=== PATIENT | female | born 1995 | race Caucasian/White ===

== ENCOUNTER 2018-11-15 12:36 | Emergency (ER) | payer OTHER, MEDICAID, SELFPAY ==
[2018-11-15 12:40] VITALS: BP 122/79; PULSE 123; RESP 20; TEMP 37.1; O2SAT 99
--- NOTE | 2018-11-15 13:17 | ED_ITS ---
HPI - Female Genitourinary <ANTHONY Galan - Last Filed: 11/15/18 17:55> General Chief complaint: Urogenital-Female Stated complaint: 'yeast infection' Time Seen by Provider: 11/15/18 12:58 Source: patient Mode of arrival: ambulatory Limitations: no limitations History of Present Illness HPI Narrative: The patient is a 23-year-old female with history of herpes who presents with the chief complaint vaginal discharge going on for about 3 weeks. She states she was seen at an outside facility 2 weeks ago, and given Diflucan based on her symptoms, however exam was not done. She complains of a yellowish greenish vaginal discharge, vaginal itching and odor. She denies any dysuria urgency or frequency. She denies any nausea vomiting or diarrhea. She denies any abnormal vaginal bleeding. She denies possibility of . She believes she may be at risk of sexually transmitted infections. she has not taken anything else other than was single dose of Diflucan. She has not followed up with primary care provider despite symptoms ongoing for 3-4 weeks. She denies any rashes. she thinks she might have trich or BV. Related Data Home Medications Medication Instructions Recorded Confirmed albuterol sulfate [ProAir HFA] 1 puff INHALATION PRN PRN 11/15/18 11/15/18 methadone 120 mg PO DAILY 11/15/18 11/15/18 naloxone [Narcan] 1 spray INTRANASAL DIRECTED PRN 11/15/18 11/15/18 Allergies Allergy/AdvReac Type Severity Reaction Status Date / Time diphenhydramine Allergy Unknown Unverified 11/15/17 12:06 [From BENADRYL] hydrocodone [From VICODIN] Allergy Unknown Unverified 11/15/17 12:06 zinc [ZINC] Allergy Unknown Unverified 11/15/17 12:06 Review of Systems <ANTHONY Galan - Last Filed: 11/15/18 17:55> Review of Systems GENERAL: Denies chills, fatigue, malaise, fever, sweats. HEENT: Denies sinus pain, ear pain, sore throat, difficulty swallowing, dizziness. RESPIRATORY: Denies dyspnea, cough, wheezing, hemoptysis, sputum. CARDIOVASCULAR: Denies chest pain, palpitations, orthopnea, edema, GASTROINTESTINAL: Denies nausea, vomiting, abdominal pain, diarrhea, constipation, melena. : See HPI MUSCULOSKELETAL: denies weakness, joint pain, or bony pain SKIN: Denies rash, skin lesions, or other NEUROLOGIC: Denies weakness, headache, numbness, change in speech, confusion, seizures, incoordination. PSYCHIATRIC: No concerning psychosocial issues. 12 point review of systems is negative except for those stated above PFSH <ANTHONY Galan - Last Filed: 11/15/18 17:55> Social History Smoking Status: Current every day smoker Social History Smoking Status: Current every day smoker Exam <ANTHONY Galan - Last Filed: 11/15/18 17:55> Narrative Exam Narrative: GENERAL: This is a well-nourished, well-developed patient, no acute distress HEAD: Atraumatic. Normocephalic. No temporal or scalp tenderness. EYES: Pupils equal round and reactive. Extraocular motions intact. No scleral icterus. No injection or drainage. ENT: Nose without bleeding, purulent drainage or septal hematoma. Throat without erythema, tonsillar hypertrophy or exudate. Uvula midline. Airway patent. NECK: Trachea midline. No JVD or lymphadenopathy. Supple, nontender, no meningeal signs. CARDIOVASCULAR: Regular rate and rhythm RESPIRATORY: No cough. No increased respiratory effort. GASTROINTESTINAL: Abdomen soft, non-tender, nondistended. No hepato- splenomegaly, or palpable masses. No guarding. EXTREMITIES: No clubbing, cyanosis, or edema. No joint tenderness, effusion, or edema noted. BACK: Nontender without deformity or crepitance. No flank tenderness. NEURO: AOx3. SKIN: No rash or erythema. : Pelvic exam performed with Tammi OWEN as environmental solutions engineer. No external rashes or erythema. White tissue yellow milky discharge noted. no strawberry cervix. No cervical motion tenderness on exam. Initial Vital Signs Initial Vital Signs: Vital Signs Temperature 98.7 F 11/15/18 12:40 Pulse Rate 123 H 11/15/18 12:40 Respiratory Rate 20 11/15/18 12:40 Blood Pressure 122/79 11/15/18 12:40 Pulse Oximetry 99 11/15/18 12:40 <Sruthi Javier DO - Last Filed: 11/19/18 07:11> Initial Vital Signs Initial Vital Signs: Vital Signs Temperature 98.7 F 11/15/18 12:40 Pulse Rate 123 H 11/15/18 12:40 Respiratory Rate 20 11/15/18 12:40 Blood Pressure 122/79 11/15/18 12:40 Pulse Oximetry 99 11/15/18 12:40 Course <ANTHONY Galan - Last Filed: 11/15/18 17:55> Orders Ordered: Discontinued Medications Metronidazole (Metronidazole) 2,000 mg PO NOW ONE Stop: 11/15/18 15:50 Last Admin: 11/15/18 15:54 Dose: 2,000 mg Vital Signs - 8 hr 11/15/18 12:40 11/15/18 15:13 Temperature 98.7 F Pulse Rate 123 H 107 H Respiratory Rate 20 18 Blood Pressure 122/79 Blood Pressure [Left Arm] 114/60 Pulse Oximetry 99 100 <DO oJse Crawford Last Filed: 11/19/18 07:11> Orders Ordered: Discontinued Medications Metronidazole (Metronidazole) 2,000 mg PO NOW ONE Stop: 11/15/18 15:50 Last Admin: 11/15/18 15:54 Dose: 2,000 mg Vital Signs - 8 hr 11/15/18 12:40 11/15/18 15:13 Temperature 98.7 F Pulse Rate 123 H 107 H Respiratory Rate 20 18 Blood Pressure 122/79 Blood Pressure [Left Arm] 114/60 Pulse Oximetry 99 100 MDM - Female Genitourinary <ANTHONY Galan - Last Filed: 11/15/18 17:55> Lab Data Lab Results 11/15/18 11/15/18 Range/Units 14:00 14:00 Urine Color Yellow Urine Appearance Clear Urine pH 5.0 (4.5-8.0) Ur Specific [place] >=1.030 H (1.000-1.035) Urine Protein Negative (Negative) Urine Glucose (UA) Negative (Negative) g/dL Urine Ketones Negative (NEGATIVE) Urine Occult Blood Trace-intact (Negative) Urine Nitrate Negative (Negative) Urine Bilirubin Negative (NEGATIVE) Urine Urobilinogen 0.2 (0.2) E.U./dL Ur Leukocyte Esterase 1+ H (NEGATIVE) Urine RBC 1-5/hpf (0-5/HPF) Urine WBC 5-10/hpf H (0-5/HPF) Ur Squamous Epith Cells 5-10 /hpf H (0-5/HPF) Urine Bacteria None seen (None) Ur Culture Indicated? Cult not indicated Ur Chlamydia DNA (PCR) Not detected N gonorrhoeae DNA (PCR) Not detected Point of Care Testing Test Results Negative MDM Narrative Medical decision making narrative: The patient is a 23-year-old female who presents with a chief complaint of vaginal discharge. she was treated with Diflucan. Thus we did do a pelvic exam. She had no cervical motion tenderness, excluding the PID diagnosis. She had testing negative for Chlamydia and gonorrhea. She had a negative RAMANA, no yeast or clue cells on culture. She was noted to have Trichomonas. Thus I treated her with 2 g of Flagyl as per up-to- date recommendations. I encouraged her to follow up with primary care provider as soon as possible. Discussed return precautions to the emergency department. Patient stated understanding and had no questions or concerns upon discharge. <Sruthi Javier, DO - Last Filed: 11/19/18 07:11> Lab Data Lab Results 11/15/18 11/15/18 Range/Units 14:00 14:00 Urine Color Yellow Urine Appearance Clear Urine pH 5.0 (4.5-8.0) Ur Specific [place] >=1.030 H (1.000-1.035) Urine Protein Negative (Negative) Urine Glucose (UA) Negative (Negative) g/dL Urine Ketones Negative (NEGATIVE) Urine Occult Blood Trace-intact (Negative) Urine Nitrate Negative (Negative) Urine Bilirubin Negative (NEGATIVE) Urine Urobilinogen 0.2 (0.2) E.U./dL Ur Leukocyte Esterase 1+ H (NEGATIVE) Urine RBC 1-5/hpf (0-5/HPF) Urine WBC 5-10/hpf H (0-5/HPF) Ur Squamous Epith Cells 5-10 /hpf H (0-5/HPF) Urine Bacteria None seen (None) Ur Culture Indicated? Cult not indicated Ur Chlamydia DNA (PCR) Not detected N gonorrhoeae DNA (PCR) Not detected Point of Care Testing Test Results Negative Discharge Plan Departure Patient Disposition: Home Clinical Impression: Trichomoniasis Discharge Date/Time: 11/15/18 16:04 Interventions: ED Discharge Assessment Last Done: 11/15/18 16:04 Instructions: DI for Trichomoniasis Activity Restrictions/Additional Instructions: We are treating you for Trichomoniasis. The single dose of Flagyl should take care of it. We are sending off a bacterial culture to check if there is any other infection. If this comes back positive he will receive a call in a few days. Please follow up with primary care provider. Please come back to emergency department for any acute concerns. Prescriptions: No Action albuterol sulfate [ProAir HFA] 90 mcg/actuation HFA aerosol inhaler 1 puff Inhalation PRN PRN (Reason: Shortness Of Breath) RF: 0 Narcan 4 mg/actuation spray,non-aerosol 1 spray Intranasal DIRECTED PRN (Reason: as directed) RF: 0 methadone 10 mg Tablet 120 mg PO DAILY RF: 0 Referrals: Colleen Rivera MD [Primary Care Provider] - <Sruthi Javier DO - Last Filed: 11/19/18 07:11> Cosign ED Attending Cosasifature Attestation: I was immediately available in the department for consultation. This documentation has been reviewed and I agree with assessment and plan. Supervised by Sruthi Javier DO
--- NOTE | 2018-11-15 13:44 | PC.NURSE ---
pt reports, having vaginal dc for one month, yellow green and with odor, itching. denies fever and nausea.
[2018-11-15 14:03] LABS: Appearance Urine UA CLEAR; Bacteria Urine None Seen; Bilirubin Urine UA NEGATIVE (NEGATIVE); Color Urine UA YELLOW; Glucose Urine UA NEGATIVE (Negative); Ketones Urine UA NEGATIVE (NEGATIVE); Leukocyte Esterase Urine UA 1+ (NEGATIVE); Nitrite Urine UA NEGATIVE (Negative); Occult Blood Urine UA TRACE-INTACT (Negative); Protein Urine UA NEGATIVE (Negative); Specific Gravity Urine UA >=1.030 (1.000-1.035); Urobilinogen Urine UA 0.2 E.U./dL (0.2)
[2018-11-15 14:11] LABS: Culture Indicated Urine Cult Not Indicated; RBC Urine 1-5/HPF (0-5/HPF); Squamous Epithelial Cell Urine 5-10 /HPF (0-5/HPF); WBC Urine 5-10/HPF (0-5/HPF)
[2018-11-15 15:13] VITALS: BP 114/60; PULSE 107; RESP 18; O2SAT 100
[2018-11-15 15:34] LABS: Urine N gonorrhoeae NOT DETECTED
[2018-11-15 15:38] LABS: Urine Chlamydia NOT DETECTED
[2018-11-15] MEDS: metroNIDAZOLE 500 MG TABLET 2000 MG PO (15:54)
== END 2018-11-15 16:04 | disposition home or self-care (01) ==
PROVIDERS: Emergency Provider Nurse Practitioner Family; Family Provider Specialist; PCP Specialist
DX: A59.9 Trichomoniasis, unspecified (principal)
CPT/HCPCS: 81001; 81025; 87070; 87077; 87147; 87205; 87210; 87220; 87491; 87591; 99283

== ENCOUNTER 2018-12-26 08:41 | Emergency (ER) | payer OTHER, MEDICAID, SELFPAY ==
[2018-12-26 08:59] VITALS: BP 125/83; PULSE 115; RESP 18; TEMP 37.2; O2SAT 100
--- NOTE | 2018-12-26 09:14 | ED.FEMALEGU ---
HPI - Female Genitourinary General Chief complaint: Urogenital-Female Stated complaint: DISCOMFORT/DISCHARGE/BURNING IN VAGINAL AREA Time Seen by Provider: 12/26/18 09:14 Source: patient Mode of arrival: ambulatory Limitations: no limitations History of Present Illness HPI Narrative: This is a 23-year-old female comes to the emergency department with concern for vaginal infection/Trichomonas. Patient states she has had once before. She states she is having similar symptoms with vaginal burning, irritation, she has had discharge that is similar. She states the only difference is there was odor last time and there is not this time. She states that she was sexually active since the last infection with an individual that she thinks she may have given Trichomonas, she did tell them about it but she does know if they ever got treatment. They do not use condoms with her sexually active. And then she had sexual activity with them again. She denies any fevers, she denies any abdominal or pelvic pain. She denies any nausea, no vomiting, no other GI or urinary symptoms. She is not having any frequency urgency or dysuria. Patient does take methadone but denies any other medications daily. Denies any other medical issues. Related Data Home Medications Medication Instructions Recorded Confirmed albuterol sulfate [ProAir HFA] 1 puff INHALATION PRN PRN 11/15/18 12/26/18 methadone 120 mg PO DAILY 11/15/18 12/26/18 naloxone [Narcan] 1 spray INTRANASAL DIRECTED PRN 11/15/18 12/26/18 Previous Rx's Medication Instructions Recorded metronidazole [Flagyl] 500 mg PO BID #14 tab 12/26/18 Allergies Allergy/AdvReac Type Severity Reaction Status Date / Time No Known Drug Allergies Allergy Verified 12/26/18 09:04 Review of Systems Review of Systems ROS Unobtainable: All systems reviewed & are unremarkable except as noted in HPI and below Constitutional Denies chills and Denies fever(s) Gastrointestinal Gastrointestinal: Denies abdominal pain, Denies change in stool character, Denies constipation, Denies diarrhea, Denies nausea and Denies vomiting Genitourinary Reports as per HPI, Denies abnormal menses, Denies urinary frequency, Reports genital pruritis, Denies genital lesions, Reports dyspareunia, Denies dysuria, Denies urinary incontinence, Denies urinary hesitancy, Denies urinary urgency, Reports vaginal discharge, Denies vaginal odor, Reports vaginal pruritus (also burning) and Reports other COUNTS INCLUDE 234 BEDS AT THE [facility] Social History Smoking Status: Current every day smoker Social History Smoking Status: Current every day smoker Exam Narrative Exam Narrative: GENERAL: Alert and oriented x three, well-nourished, well-appearing female in no acute distress. HEENT: Head normocephalic, atraumatic, EOMI, pupils reactive, face symmetric, moist mucous membranes NECK: Supple, full range of motion CARDIOVASCULAR: Regular rate and rhythm without murmurs, rubs or gallops. RESPIRATORY: Breath sounds equal bilaterally, no wheezes rales or rhonchi. ABDOMEN: Soft, nontender. Normoactive bowel sounds all 4 quadrants. No guarding or rebound, rigidity, no mass : No CVA tenderness. Female: external vaginal exam is normal, no vaginal bleeding, patient has copious thin white discharge, no odor appreciated, no cervical motion tenderness, patient has some erythema of the inner labia and vaginal canal and patient is quite uncomfortable with placement of the speculum, no adnexal tenderness/mass. Bimanual exam is normal otherwise, no enlarged or tender uterus. Non-gravid. EXTREMITIES: Normal range of motion, no clubbing or edema. Neurovascularly intact NEUROLOGICAL: Cranial nerves II through XII grossly intact. Moving all extremities SKIN: Warm, dry, no petechiae, no rashes or lesions. Initial Vital Signs Initial Vital Signs: Vital Signs Temperature 99.0 F 12/26/18 08:59 Pulse Rate 115 H 12/26/18 08:59 Respiratory Rate 18 12/26/18 08:59 Blood Pressure 125/83 12/26/18 08:59 Pulse Oximetry 100 12/26/18 08:59 Course Orders Ordered: ED Orders 12/26/18 09:39 Genital Culture Stat 12/26/18 09:40 Urine Chlamydia Gonorrhea PCR Stat 12/26/18 09:44 Wet Prep Tric BV Malena Stat Discontinued Medications Azithromycin (Zithromax) 1,000 mg PO NOW ONE Stop: 12/26/18 09:35 Last Admin: 12/26/18 09:58 Dose: 1,000 mg Ceftriaxone Sodium (Rocephin) 250 mg IM NOW ONE Stop: 12/26/18 09:35 Last Admin: 12/26/18 09:58 Dose: 250 mg Vital Signs - 8 hr 12/26/18 10:23 12/26/18 10:40 Temperature 98.2 F Pulse Rate 91 H 91 H Respiratory Rate 16 18 Blood Pressure 106/79 Blood Pressure [Left Arm] 108/79 Pulse Oximetry 98 98 MDM - Female Genitourinary Lab Data Attestation: I reviewed the patient's lab results. Lab Results 12/26/18 12/26/18 Range/Units 08:50 09:40 Urine RBC 1-5/hpf (0-5/HPF) Urine WBC 10-30/hpf H (0-5/HPF) Ur Squamous Epith Cells 5-10 /hpf H (0-5/HPF) Ur Transition Epith Cell 0-1/hpf (0-5/HPF) Urine Bacteria Moderate (10-30) H (None) Ur Culture Indicated? Cult not indicated Ur Chlamydia DNA (PCR) Not detected N gonorrhoeae DNA (PCR) Not detected Point of Care Testing Test Results Negative Urine Dip Bedside Urine Glucose Negative Bedside Urine Bilirubin - Negative Bedside Urine Ketone - Negative Urine Specific [place] 1.030 Bedside Urine Occult Blood +/- Bedside Urine pH 6 Bedside Urine Protein +/- 15 Bedside Urine Urobilinogen - Negative Bedside Urine Nitrite - Negative Bedside Urine Leukocytes ++ 125 Esterase MDM Narrative Medical decision making narrative: Discussed with patient since she has had Trichomonas in the past and continues to be sexually active I would like to test for additional STDs. Patient is agreeable. Discharge Plan Departure Patient Disposition: Home Clinical Impression: Cervicitis Discharge Date/Time: 12/26/18 10:25 Interventions: ED Discharge Assessment Last Done: 12/26/18 10:40 Instructions: DI for Acute Cervicitis Activity Restrictions/Additional Instructions: Follow-up with primary care in the next 1-2 weeks for recheck. Your swabs were sent for culture and take several days to return. Take antibiotics until gone. Take 1 tablet every 12 hours x 7 days. Do not drink alcohol with this medication, it will make you vomit. No sexual activity the next 10 days. Use condoms afterwards to avoid any reinfection. Please notify partners and asked them to get tested and treated. Return to the emergency department for fevers greater than 100.4 F, new back, flank or abdominal pain, persistent vomiting or other new or concerning symptoms. Prescriptions: New metronidazole [Flagyl] 500 mg tablet 500 mg PO BID Qty: 14 RF: 0 No Action albuterol sulfate [ProAir HFA] 90 mcg/actuation HFA aerosol inhaler 1 puff Inhalation PRN PRN (Reason: Shortness Of Breath) RF: 0 Narcan 4 mg/actuation spray,non-aerosol 1 spray Intranasal DIRECTED PRN (Reason: as directed) RF: 0 methadone 10 mg Tablet 120 mg PO DAILY RF: 0 Referrals: Colleen Rivera MD [Primary Care Provider] -
[2018-12-26 09:27] LABS: Bacteria Urine Moderate (10-30); RBC Urine 1-5/HPF (0-5/HPF); Squamous Epithelial Cell Urine 5-10 /HPF (0-5/HPF); Transitional Epi Cells Urine 0-1/HPF (0-5/HPF); WBC Urine 10-30/HPF (0-5/HPF)
[2018-12-26 09:28] LABS: Culture Indicated Urine Cult Not Indicated
[2018-12-26] MEDS: cefTRIAXone 500 MG VIAL 250 MG IM (09:58)
[2018-12-26] MEDS: AZITHROMYCIN 250 MG TABLET 1000 MG PO (09:58)
[2018-12-26 10:23] VITALS: BP 108/79; PULSE 91; RESP 16; TEMP 36.8; O2SAT 98
[2018-12-26 10:40] VITALS: BP 106/79; PULSE 91; RESP 18; O2SAT 98
[2018-12-26 11:42] LABS: Urine N gonorrhoeae NOT DETECTED
[2018-12-26 11:43] LABS: Urine Chlamydia NOT DETECTED
== END 2018-12-26 10:25 | disposition home or self-care (01) ==
PROVIDERS: Emergency Provider Emergency Medicine; Family Provider Specialist; PCP Specialist
DX: N72 Inflammatory disease of cervix uteri (principal)
CPT/HCPCS: 36415; 81003; 81015; 81025; 87070; 87077; 87147; 87205; 87210; 87491; 87591; 96372; 99283; J0696

== ENCOUNTER 2019-06-27 21:02 | Emergency (ER) | payer OTHER, MEDICAID, SELFPAY ==
[2019-06-27 21:10] VITALS: BP 128/82; PULSE 98; RESP 16; TEMP 36.9; O2SAT 100
[2019-06-27 21:17] LABS: Bilirubin Urine UA 1+ (NEGATIVE); Glucose Urine UA NEGATIVE (Negative); Ketones Urine UA TRACE (NEGATIVE); Leukocyte Esterase Urine UA 3+ (NEGATIVE); Nitrite Urine UA NEGATIVE (Negative); Occult Blood Urine UA 3+ (Negative); Protein Urine UA 2+ (Negative); Specific Gravity Urine UA 1.015 (1.000-1.035); Urobilinogen Urine UA 0.2 E.U./dL (0.2)
[2019-06-27 21:22] LABS: Appearance Urine UA Cloudy; Color Urine UA REDDISH BROWN; pH Urine UA 6.5 (4.5-8.0)
[2019-06-27 21:31] LABS: Bacteria Urine Few (2-10); Ictotest Urine Negative (Negative); RBC Urine >100/HPF (0-5/HPF); WBC Urine 30-100/HPF (0-5/HPF)
[2019-06-27 21:32] LABS: Culture Indicated Urine Specimen Cultured
--- NOTE | 2019-06-27 21:48 | ED.GENADULT ---
HPI - General Adult General Chief complaint: Urogenital-Female Stated complaint: states bloody urine Time Seen by Provider: 06/27/19 21:04 Source: patient Mode of arrival: Ambulatory Limitations: no limitations History of Present Illness HPI narrative: 24-year-old female here for evaluation of blood in her urine. She states that she has had blood in her urine in the past but she states that all of the times in the past she has been told that they had a look under microscope to see it. She has never been able to visually see blood in her urine. She states that is normally associated when she has urinary tract infections. She states she used to have frequent urinary tract infections. Has not had anything in the past couple years. She also states that currently she has dysuria with frequency and urgency and some pain. No vaginal bleeding. No bowel symptoms. No vomiting. No back pain. No fevers. Related Data Home Medications Medication Instructions Recorded Confirmed albuterol sulfate [ProAir HFA] 1 puff INHALATION PRN PRN 11/15/18 12/26/18 methadone 120 mg PO DAILY 11/15/18 12/26/18 naloxone [Narcan] 1 spray INTRANASAL DIRECTED PRN 11/15/18 12/26/18 Previous Rx's Medication Instructions Recorded metronidazole [Flagyl] 500 mg PO BID #14 tab 12/26/18 nitrofurantoin monohyd/m-cryst 100 mg PO Q12H 5 Days #10 cap 06/27/19 [Macrobid] Allergies Allergy/AdvReac Type Severity Reaction Status Date / Time No Known Drug Allergies Allergy Verified 12/26/18 09:04 Review of Systems Constitutional Constitutional: Denies fever(s) Cardiovascular Cardiovascular: Denies chest pain and Denies dyspnea Respiratory Respiratory: Denies dyspnea Gastrointestinal Gastrointestinal: Denies abdominal pain, Denies nausea and Denies vomiting Genitourinary Genitourinary: Reports hematuria, Reports urinary frequency, Reports dysuria, Denies flank pain, Denies urinary incontinence, Reports urinary urgency and Denies vaginal discharge Musculoskeletal Musculoskeletal: Denies myalgias and Denies arthralgias Integumentary/Breasts Skin/Breast: Denies lesions and Denies rash Neurologic Neurologic: Denies behavioral changes Psychiatric Psychiatric: Denies behavioral changes Hematologic/Lymphatic Hematologic/Lymphatic: Denies easy bleeding and Denies easy bruising Patient History Medical History Feared complaint without diagnosis (Inactive) Migraine headache (Inactive) 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) Urinary tract infection (Inactive) Social History Smoking Status: Current every day smoker alcohol intake frequency: other Substance Use Type: marijuana Exam Initial Vital Signs Initial Vital Signs: Vital Signs Temperature 98.4 F 06/27/19 21:10 Pulse Rate 98 H 06/27/19 21:10 Respiratory Rate 16 06/27/19 21:10 Blood Pressure 128/82 06/27/19 21:10 Pulse Oximetry 100 06/27/19 21:10 Const General: cooperative and comfortable Orientation: alert, awake and oriented x3 HENMT Head: normal to inspection and normocephalic Resp Effort & Inspection: normal respiratory effort Cardio Rate: regular rate GI Inspection: non-distended Skin Lesions: no lesions Rashes: no rashes Neuro General: alert and awake Extrem General: normal to inspection Psych Appearance: grossly normal and well kempt Course Orders Ordered: ED Orders 06/27/19 21:10 Ictotest Urine Stat Urinalysis and Microscopic Stat Urine Culture Stat Discontinued Medications Nitrofurantoin Macrocrystals (Macrobid 100 Mg Capsule) 100 mg PO NOW ONE Stop: 06/27/19 21:47 Last Admin: 06/27/19 21:56 Dose: 100 mg Documented by: [email or web address] Vital Signs Vital signs: Vital Signs - 8 hr 06/27/19 21:10 06/27/19 22:06 Temperature 98.4 F Pulse Rate 98 H 97 H Respiratory Rate 16 16 Blood Pressure 128/82 Blood Pressure [Right Arm] 132/89 Pulse Oximetry 100 100 Medical Decision Making Lab Data Lab results reviewed: Yes I reviewed the patient's lab results. Labs: Lab Results 06/27/19 Range/Units 21:10 Urine Color Reddish brown Urine Appearance Cloudy Urine pH 6.5 (4.5-8.0) Ur Specific [place] 1.015 (1.000-1.035) Urine Protein 2+ H (Negative) Urine Glucose (UA) Negative (Negative) g/dL Urine Ketones Trace H (NEGATIVE) Urine Occult Blood 3+ H (Negative) Urine Nitrate Negative (Negative) Urine Bilirubin 1+ H (NEGATIVE) Urine Ictotest Negative (Negative) Urine Urobilinogen 0.2 (0.2) E.U./dL Ur Leukocyte Esterase 3+ H (NEGATIVE) Urine RBC >100/hpf H (0-5/HPF) Urine WBC 30-100/hpf H (0-5/HPF) Urine Bacteria Few (2-10) H (None) Ur Culture Indicated? Specimen cultured Point of Care Testing Test Results Negative Point of care testing: Point of Care Testing Test Results Negative MDM Narrative Medical decision making narrative: Patient is nontoxic. Urinalysis is consistent with a UTI specially given her dysuria symptoms. Will treat with antibiotics. Was given the 1st dose here in the ER and sent home with a prescription for the remainder. No back pain or other physical exam findings consistent with pyelonephritis. Patient was informed that after the symptoms improve she should talk with her primary doctor about a referral to see Urology. She expressed understanding and agreement plan. Discharge Plan Departure Patient Disposition: Home Clinical Impression: Hematuria Qualifiers: Hematuria type: gross Qualified Code(s): R31.0 - Gross hematuria Urinary tract infection Qualifiers: Urinary tract infection type: acute cystitis Hematuria presence: with hematuria Qualified Code(s): N30.01 - Acute cystitis with hematuria Discharge Date/Time: 06/27/19 22:13 Instructions: DI for Urinary Tract Infection (UTI), DI for Hematuria Activity Restrictions/Additional Instructions: Take the antibiotics as directed. I do recommend you follow up with your primary provider to discuss the potential referral for Urology. Return to the emergency department for any new or worsening symptoms Prescriptions: New nitrofurantoin monohyd/m-cryst [Macrobid] 100 mg capsule 100 mg PO Q12H 5 Days Qty: 10 RF: 0 No Action metronidazole [Flagyl] 500 mg tablet 500 mg PO BID Qty: 14 RF: 0 albuterol sulfate [ProAir HFA] 90 mcg/actuation HFA aerosol inhaler 1 puff Inhalation PRN PRN (Reason: Shortness Of Breath) RF: 0 Narcan 4 mg/actuation spray,non-aerosol 1 spray Intranasal DIRECTED PRN (Reason: as directed) RF: 0 methadone 10 mg Tablet 120 mg PO DAILY RF: 0 Referrals: Colleen Rivera MD [Primary Care Provider] -
[2019-06-27] MEDS: NITROFURANTOIN ER 100 MG CAPSULE PO (21:56)
[2019-06-27 22:06] VITALS: BP 132/89; PULSE 97; RESP 16; O2SAT 100
== END 2019-06-27 22:13 | disposition home or self-care (01) ==
PROVIDERS: Emergency Provider Emergency Medicine; Family Provider Specialist; PCP Specialist
DX: N30.01 Acute cystitis with hematuria (principal)
CPT/HCPCS: 81001; 81025; 87077; 87086; 87186; 99282; 99283

== ENCOUNTER 2019-09-12 13:21 | Emergency (ER) | payer OTHER, MEDICAID, SELFPAY ==
[2019-09-12 13:30] VITALS: BP 152/71; PULSE 125; RESP 20; TEMP 36.6; O2SAT 99; BMI 32.5
--- NOTE | 2019-09-12 13:52 | ED_ITS ---
HPI - Extremity Problem General Chief complaint: Wound/Laceration Stated complaint: issue with middle finger on left hand Time Seen by Provider: 09/12/19 13:34 Source: patient Mode of arrival: Ambulatory Limitations: no limitations History of Present Illness HPI Narrative: This is a 24-year-old female who comes to the emergency department with complaint of affection in the 3rd finger of her left hand. Patient states that she injected into a small vein that runs across the hand 2 days ago and she has since had increasing pain and swelling in the finger. She states it is not numb. She can flex and extend somewhat but is become increasingly painful. No fevers. She denies other symptoms. She states that she does not have any other medical issues. She did use to take methadone but is not taking this any more. Patient denies any allergies to medications. Related Data Home Medications Medication Instructions Recorded Confirmed albuterol sulfate [ProAir HFA] 1 puff INHALATION PRN PRN 11/15/18 09/12/19 naloxone [Narcan] 1 spray INTRANASAL DIRECTED PRN 11/15/18 09/12/19 naltrexone microspheres [Vivitrol] 380 mg IM QMONTH 09/12/19 09/12/19 quetiapine 100 mg PO BEDTIME 09/12/19 09/12/19 Allergies Allergy/AdvReac Type Severity Reaction Status Date / Time No Known Drug Allergies Allergy Verified 12/26/18 09:04 Review of Systems Review of Systems ROS Unobtainable: All systems reviewed & are unremarkable except as noted in HPI and below Patient History Medical History Feared complaint without diagnosis (Inactive) Migraine headache (Inactive) 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 HEENT: Head normocephalic, atraumatic, EOMI, pupils reactive, face symmetric, moist mucous membranes NECK: Supple, full range of motion CARDIOVASCULAR: Regular rate and rhythm without murmurs, rubs or gallops. RESPIRATORY: Breath sounds equal bilaterally, no wheezes rales or rhonchi. ABDOMEN: Soft, nontender. Normoactive bowel sounds all 4 quadrants. No guarding or rebound, rigidity, no mass : No CVA tenderness EXTREMITIES: Patient has fusiform digit on the left hand the 3rd digit. There is some erythema extending up the finger and over the dorsum of the hand. Patient can flex and extend without extreme pain but she is uncomfortable. She has tenderness particularly at the base and middle interphalangeal joint region majority of swelling is at the base on the volar side of the finger. Patient states this is where she had injected her finger. She does have sensation to light touch. Cap refill is 2 seconds. Patient is 2+ radial pulse. Neurovascularly intact NEUROLOGICAL: Cranial nerves II through XII grossly intact. Moving all extremities SKIN: Warm, dry, no petechiae, patient has erythema surrounding base of finger. Initial Vital Signs Initial Vital Signs: Vital Signs Temperature 97.9 F 09/12/19 13:30 Pulse Rate 125 H 09/12/19 13:30 Respiratory Rate 20 09/12/19 13:30 Blood Pressure 152/71 H 09/12/19 13:30 Pulse Oximetry 99 09/12/19 13:30 Course Orders Ordered: ED Orders 09/12/19 13:51 XR finger LT min 2V Stat 09/12/19 16:10 Blood Culture Stat Complete Blood Count AUTO DIFF Stat Comprehensive Metabolic Panel Stat Lactate (Lactic Acid) Stat Procalcitonin Stat Discontinued Medications Sodium Chloride (Normal Saline 0.9%) 2,585.49 mls @ 861.83 mls/hr 30 ml/kg infuse over 3 hr (2585.49 ml) IV NOW ONE Stop: 09/12/19 17:27 Last Infusion: 09/12/19 19:28 Dose: 0 mls/hr Documented by: Admin: 09/12/19 16:16 Dose: 861.83 mls/hr Documented by: CVANCE Vancomycin HCl/Dextrose (Vancomycin) 2,000 mg in 400 mls @ 200 mls/hr IV NOW ONE Stop: 09/12/19 16:29 Last Infusion: 09/12/19 19:31 Dose: 0 mls/hr Documented by: Admin: 09/12/19 16:48 Dose: 200 mls/hr Documented by: CVANCE Ceftriaxone Sodium/Dextrose (Rocephin) 1 gm in 50 mls @ 100 mls/hr IV NOW ONE Stop: 09/12/19 18:22 Last Admin: 09/12/19 19:28 Dose: Not Given Documented by: YUAN Ketorolac Tromethamine (Toradol) 30 mg IV NOW ONE Stop: 09/12/19 14:29 Last Admin: 09/12/19 16:19 Dose: 30 mg Documented by: YUAN Vital Signs Vital signs: Vital Signs - 8 hr 09/12/19 13:30 09/12/19 16:57 Temperature 97.9 F Pulse Rate 125 H 97 H Respiratory Rate 20 15 Blood Pressure 152/71 H Blood Pressure [Right Arm] 121/73 Pulse Oximetry 99 100 MDM - Extremity (Nontraumatic) Lab Data Result diagrams: 09/12/19 16:10 09/12/19 16:10 Labs: Lab Results 09/12/19 09/12/19 09/12/19 Range/Units 16:10 16:10 16:10 WBC 8.0 (4.5-11.0) X10^3/uL RBC 4.58 (4.0-5.2) X10^6/uL Hgb 13.2 (12.0-16.0) g/dL Hct 36.9 (36-46) % MCV 80.7 (80-100) fL MCH 28.7 (26-34) PG MCHC 35.6 (30-36) % RDW 13.8 (11.6-14.8) % Plt Count 262 (150-400) X10^3/uL Neut % (Auto) 62.5 (50-75) % Lymph % (Auto) 26.0 (25-40) % [place] % (Auto) 8.7 (3-14) % Eos % (Auto) 2.4 (2-4) % Baso % (Auto) 0.4 (0-2) % Neut # (Auto) 5000 (5959-4117) /uL Lymph # (Auto) 2100 (4690-0138) /uL [place] # (Auto) 700 (0-900) /uL Eos # (Auto) 200 (0-450) /uL Baso # (Auto) 0 (0-100) /uL Sodium 142 (137-145) mmol/L Potassium 3.7 (3.4-5.1) mmol/L Chloride 104 (98-107) mmol/L Carbon Dioxide 25 (22-32) mmol/L BUN 14 (7-17) mg/dL Creatinine 0.70 (0.52-1.04) mg/dL Estimated GFR > 60.0 (>60) mL/min BUN/Creatinine Ratio 20.0 (6-22) Glucose 112 H (70-100) mg/dL Lactate (0.7-2.1) mmol/L Calcium 9.2 (8.4-10.2) mg/dL Total Bilirubin 0.2 (0.2-1.3) mg/dL AST 21 (14-36) IU/L ALT 16 (<35) IU/L Alkaline Phosphatase 75 (38-126) U/L Total Protein 7.1 (6.3-8.2) g/dL Albumin 4.0 (3.5-5.0) g/dL Globulin 3.1 (1.7-4.1) g/dL Albumin/Globulin Ratio 1.3 (1.0-2.8) Procalcitonin < 0.05 (<0.5) ng/mL 09/12/19 Range/Units 16:10 WBC (4.5-11.0) X10^3/uL RBC (4.0-5.2) X10^6/uL Hgb (12.0-16.0) g/dL Hct (36-46) % MCV (80-100) fL MCH (26-34) PG MCHC (30-36) % RDW (11.6-14.8) % Plt Count (150-400) X10^3/uL Neut % (Auto) (50-75) % Lymph % (Auto) (25-40) % [place] % (Auto) (3-14) % Eos % (Auto) (2-4) % Baso % (Auto) (0-2) % Neut # (Auto) (3428-4353) /uL Lymph # (Auto) (6787-2661) /uL [place] # (Auto) (0-900) /uL Eos # (Auto) (0-450) /uL Baso # (Auto) (0-100) /uL Sodium (137-145) mmol/L Potassium (3.4-5.1) mmol/L Chloride (98-107) mmol/L Carbon Dioxide (22-32) mmol/L BUN (7-17) mg/dL Creatinine (0.52-1.04) mg/dL Estimated GFR (>60) mL/min BUN/Creatinine Ratio (6-22) Glucose (70-100) mg/dL Lactate 1.0 (0.7-2.1) mmol/L Calcium (8.4-10.2) mg/dL Total Bilirubin (0.2-1.3) mg/dL AST (14-36) IU/L ALT (<35) IU/L Alkaline Phosphatase (38-126) U/L Total Protein (6.3-8.2) g/dL Albumin (3.5-5.0) g/dL Globulin (1.7-4.1) g/dL Albumin/Globulin Ratio (1.0-2.8) Procalcitonin (<0.5) ng/mL Point of Care Testing Test Results Negative Urine Dip Bedside Urine Glucose Negative Bedside Urine Bilirubin - Negative Bedside Urine Ketone - Negative Urine Specific [place] 1.025 Bedside Urine Occult Blood - Negative Bedside Urine pH 6.0 Bedside Urine Protein +/- 15 Bedside Urine Urobilinogen - Negative Bedside Urine Nitrite - Negative Bedside Urine Leukocytes - Negative Esterase Imaging Data finger xray: Radiologist's Impression: [place] [address] XRay Report Signed Patient: Snehal Lucas#: [id number] : 1995Acct:[id number] Age/Sex: 24 / FDate of Service: 09/12/19 Loc: ED Accession Number: [id number] Procedure: XR finger LT min 2V Ordering Provider: Sruthi Javier D.O. PROCEDURE: XR FINGER LT MIN 2V INDICATIONS: 3rd finger, left hand, injected in finger/infectionnow TECHNIQUE: AP hand, 2 views of the left finger(s) acquired. COMPARISON: None. FINDINGS: Bones: No fractures or dislocations. No suspicious bony lesions. No definite focal osseous destruction to suggest advanced osteomyelitis. Soft tissues: Soft tissue swelling centered at the PIP joint level of the middle finger No radiopaque foreign body IMPRESSION: Soft tissue swelling involving the middle finger. No radiopaque foreign body. No focal osseous destruction Dictated by: Lemuel Carroll M.D. on 09/12/2019 at 14:21 Approved by: Lemuel Carroll M.D. on 09/12/2019 at 14:23 MDM Narrative Medical decision making narrative: Patient comes in with complaint of swelling infection of her middle finger on her left hand after injecting IV drugs about 2 days ago into that finger. Patient does have fusiform digit, she hold slightly in passive flexion but she can extend it without significant pain. Patient does have tenderness over the flexor portion and towards the palm. X-ray does not show any gas or foreign body noted. Bedside ultrasound was performed by myself and I cannot appreciate any abscess or fluid collection within the soft tissue i tself. Spoke with orthopedic surgery, Dr. Donnelly saw patient in the department. Plan to continue Vancomycin + Rocephin for broad spectrum coverage. There is a question whether this is a true flexor tenosynovitis versus early abscess/infection. Patient admitted to Dr. Disla after discussion. Plan for Ortho to follow closely. Patient left the department unwitnessed. She appears to have left with her IV. I did go to parking lot and patient was not witnessed there as well as checking bathrooms and other locations. Security was contacted they do have video her leaving the hospital and PD was also contacted as patient is high risk with history of IVDA and midline in place. PD did stop by with pictures to verify the individual. Discharge Plan Departure Patient Disposition: Left Against Medical Advice Clinical Impression: Tenosynovitis of finger Discharge Date/Time: 09/12/19 18:30 Admit Date/Time: 09/12/19 17:57 Admit Provider: Faina Disla
[2019-09-12] MEDS: SODIUM CHLORIDE 0.9% 2,585.49 ML 861.83 ML IV (16:16)
[2019-09-12 16:18] LABS: Add Manual Diff / Slide Review NO; Basophils Absolute Auto 0 /uL (0-100); Basophils Percent Auto 0.4 % (0-2); Eosinophils Absolute Auto 200 /uL (0-450); Eosinophils Percent Auto 2.4 % (2-4); Hematocrit 36.9 % (36-46); Hemoglobin 13.2 g/dL (12.0-16.0); Lymphocytes Absolute Auto 2100 /uL (1100-4500); Mean Corpuscular HGB Conc 35.6 % (30-36); Mean Corpuscular Hemoglobin 28.7 PG (26-34); Mean Corpuscular Volume 80.7 fL (80-100); Monocytes Absolute Auto 700 /uL (0-900); Monocytes Percent Auto 8.7 % (3-14); Neutrophils Absolute Auto 5000 /uL (1500-7000); Neutrophils Percent Auto 62.5 % (50-75); Platelet Count 262 X10^3/uL (150-400); Red Blood Cell Count 4.58 X10^6/uL (4.0-5.2); Red Cell Distribution Width 13.8 % (11.6-14.8)
[2019-09-12] MEDS: KETOROLAC 60 MG/2 ML VIAL 30 MG IV (16:19)
[2019-09-12 16:32] LABS: Alanine Aminotransferase 16 IU/L (<35); Albumin Globulin Ratio 1.3 (1.0-2.8); Alkaline Phosphatase 75 U/L (38-126); Aspartate Aminotransferase 21 IU/L (14-36); Bilirubin Total 0.2 mg/dL (0.2-1.3); Blood Urea Nitrogen 14 mg/dL (7-17); Calcium 9.2 mg/dL (8.4-10.2); Carbon Dioxide 25 mmol/L (22-32); Chloride 104 mmol/L (98-107); Estimated Glomerular Filt Rate > 60.0 mL/min (>60); Globulin 3.1 g/dL (1.7-4.1); Glucose 112 mg/dL (70-100); HEMOLYSIS < 15 (0-50); Potassium 3.7 mmol/L (3.4-5.1); Sodium 142 mmol/L (137-145); Total Protein 7.1 g/dL (6.3-8.2)
[2019-09-12 16:47] LABS: Procalcitonin < 0.05 ng/mL (<0.5)
[2019-09-12] MEDS: VANCOMYCIN 2,000 MG/400 ML PIGGYBACK 200 MG IV (16:48)
--- NOTE | 2019-09-12 16:50 | PC.NURSE ---
midline in upper lt arm is 8cm
[2019-09-12 16:57] VITALS: BP 121/73; PULSE 97; RESP 15; O2SAT 100
--- NOTE | 2019-09-12 17:35 | P.CONS_ITS ---
History of Present Illness Consult details Date Patient Seen: 09/12/19 Time Patient Seen: 17:35 Chief complaint: issue with middle finger on left hand Reason for consult: Left hand middle finger infection Requesting provider: Sruthi Javier Narrative: 24-year-old female with a left hand middle finger infection. She has a history of IV drug abuse. She reports that she recently shot up 2 days ago into a small vein on her left hand. She came to the emergency room today having increasing pain and swelling into this finger. She denies any fever or chills. She is having difficulty moving the finger up and down. Pain is sharp and very tender to the touch along the ulnar aspect of the middle finger over the PIP joint. She is right-hand dominant. Meds Home Medications and Allergies Home Medications Medication Instructions Recorded Confirmed Type albuterol sulfate [ProAir HFA] 1 puff INHALATION PRN PRN 11/15/18 09/12/19 History naloxone [Narcan] 1 spray INTRANASAL DIRECTED PRN 11/15/18 09/12/19 History naltrexone microspheres [Vivitrol] 380 mg IM QMONTH 09/12/19 09/12/19 History quetiapine 100 mg PO BEDTIME 09/12/19 09/12/19 History Allergies Allergy/AdvReac Type Severity Reaction Status Date / Time No Known Drug Allergies Allergy Verified 12/26/18 09:04 Review of Systems Constitutional Constitutional: Denies chills and Denies fever(s) Cardiovascular Cardiovascular: Denies chest pain and Denies shortness of breath Respiratory Respiratory: Denies dyspnea and Denies wheezing Genitourinary Genitourinary: Denies urinary incontinence Musculoskeletal Musculoskeletal: Denies numbness Neurologic Neurologic: Denies numbness Hematologic/Lymphatic Hematologic/Lymphatic: Denies easy bleeding Allergic/Immunologic Allergic/Immunologic: Denies wheezing Exam Vital Signs (past 8 hours): - 09/12/19 13:30 09/12/19 16:57 Temperature 97.9 F Pulse Rate 125 H 97 H Respiratory Rate 20 15 Blood Pressure 152/71 H Blood Pressure [Right Arm] 121/73 Pulse Oximetry 99 100 Oxygen Delivery Method Room Air Const Orientation: alert and oriented x3 Extrem Other: Left hand full comfortable range of motion and nontender to palpation through all the fingers except the middle finger. Very minimal tenderness along the volar aspect of the middle finger along the flexor tendon. All the pain is over the ulnar aspect of the finger along the PIP. Unable to palpate any fluctuance but this area has some erythema and is much more swollen than all the other fingers. I can extend her finger out to 0? although there is some discomfort with this. No erythema tracking into the palm. Good capillary refill in the finger, intact sensation throughout the finger. Objective Imaging X-ray left hand: My impression: Mild swelling along the ulnar aspect of the middle finger PIP joint. No foreign body or fracture Labs Result Diagrams: 09/12/19 16:10 09/12/19 16:10 Labs: Laboratory Results - last 24 hr 09/12/19 09/12/19 09/12/19 16:10 16:10 16:10 WBC 8.0 RBC 4.58 Hgb 13.2 Hct 36.9 MCV 80.7 MCH 28.7 MCHC 35.6 RDW 13.8 Plt Count 262 Neut % (Auto) 62.5 Lymph % (Auto) 26.0 [place] % (Auto) 8.7 Eos % (Auto) 2.4 Baso % (Auto) 0.4 Neut # (Auto) 5000 Lymph # (Auto) 2100 [place] # (Auto) 700 Eos # (Auto) 200 Baso # (Auto) 0 Sodium 142 Potassium 3.7 Chloride 104 Carbon Dioxide 25 BUN 14 Creatinine 0.70 Estimated GFR > 60.0 BUN/Creatinine Ratio 20.0 Glucose 112 H Lactate Calcium 9.2 Total Bilirubin 0.2 AST 21 ALT 16 Alkaline Phosphatase 75 Total Protein 7.1 Albumin 4.0 Globulin 3.1 Albumin/Globulin Ratio 1.3 Procalcitonin < 0.05 09/12/19 16:10 WBC RBC Hgb Hct MCV MCH MCHC RDW Plt Count Neut % (Auto) Lymph % (Auto) [place] % (Auto) Eos % (Auto) Baso % (Auto) Neut # (Auto) Lymph # (Auto) [place] # (Auto) Eos # (Auto) Baso # (Auto) Sodium Potassium Chloride Carbon Dioxide BUN Creatinine Estimated GFR BUN/Creatinine Ratio Glucose Lactate 1.0 Calcium Total Bilirubin AST ALT Alkaline Phosphatase Total Protein Albumin Globulin Albumin/Globulin Ratio Procalcitonin Assessment & Plan Assessment & Plan narrative: Left middle finger infection. This does not appear to be a tenosynovitis, I think it is more localized in the lateral soft tissue. My recommendation is for admission for IV broad-spectrum antibiotics. Hopefully, the swelling will go down and this will resolve. However, if an abscess does develop this may be something he needs to be surgically lanced and debrided. However, at this point I do not have a discrete lesion to go after and we will watch her on IV antibiotics.
--- NOTE | 2019-09-12 18:36 | PC.NURSE ---
Patient was standing at bedside says she wants to go out and smoke. I said no that I would get MD to order a patch. Then when I went back in the room she was gone. Iv fluids there but no blood Most likely left the midline IV in. Security notified and police notified.
--- NOTE | 2019-09-12 18:36 | PC.NURSE ---
pt escaped from department, police called. per Maryse Palencia
--- NOTE | 2019-09-12 18:38 | PC.NURSE ---
CARTOGRAPHY TEACHER/BILLIE Note: Pt. escaped. I informed MD and entrance guard. and I want outside to look for Patient. Unable to find her. I was instructed to call [place] Officer on his way.
--- NOTE | 2019-09-12 23:32 | PM.EVENT ---
Event Note Event Note: Not seen due to patient leaving AMA.
== END 2019-09-12 18:30 | disposition left against medical advice (07) ==
LOC: ED 17:54 → AC 18:59
PROVIDERS: Emergency Provider Emergency Medicine; Family Provider Specialist; Referring Provider Emergency Medicine
DX: M65.9 Synovitis and tenosynovitis, unspecified (principal)
CPT/HCPCS: 36415; 73140; 80053; 81003; 81025; 83605; 84145; 85025; 87040; 96365; 96366; 96375; 99284; J1885

== ENCOUNTER 2020-02-17 06:33 | Emergency (ER) | payer OTHER, MEDICAID, SELFPAY ==
[2020-02-17 06:41] VITALS: BP 137/75; PULSE 127; RESP 18; TEMP 37; O2SAT 99; BMI 34.3
--- NOTE | 2020-02-17 06:42 | ED.GENADULT ---
HPI - General Adult General Chief complaint: Skin/Abscess/Foreign Body Stated complaint: abcess on right thigh Time Seen by Provider: 02/17/20 06:41 Source: patient Mode of arrival: Ambulatory Limitations: no limitations History of Present Illness HPI narrative: 24-year-old female here for evaluation of an abscess on her right thigh. Patient states that she noticed some redness in the area over the past week but noticed increasing pain and swelling over the past 3 days. She states she has had an abscess in the past that is needed drain but was many years ago. She reports no specific trauma to this area. Has not tried anything for the symptoms prior to arrival. Related Data Home Medications Medication Instructions Recorded Confirmed albuterol sulfate [ProAir HFA] 1 puff INHALATION PRN PRN 11/15/18 09/12/19 naloxone [Narcan] 1 spray INTRANASAL DIRECTED PRN 11/15/18 09/12/19 naltrexone microspheres [Vivitrol] 380 mg IM QMONTH 09/12/19 09/12/19 quetiapine 100 mg PO BEDTIME 09/12/19 09/12/19 Previous Rx's Medication Instructions Recorded doxycycline hyclate 100 mg PO BID 7 Days #14 cap 02/17/20 Allergies Allergy/AdvReac Type Severity Reaction Status Date / Time No Known Drug Allergies Allergy Verified 12/26/18 09:04 Review of Systems Constitutional Constitutional: Denies fever(s) Musculoskeletal Comments: Pain right leg Integumentary/Breasts Comments: Abscess right leg Neurologic Neurologic: Denies behavioral changes Psychiatric Psychiatric: Denies behavioral changes Hematologic/Lymphatic Hematologic/Lymphatic: Denies easy bleeding and Denies easy bruising Patient History Medical History Feared complaint without diagnosis (Inactive) Migraine headache (Inactive) 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) Urinary tract infection (Inactive) Social History Smoking Status: Current every day smoker Smoking Status: Current every day smoker alcohol intake frequency: other Substance Use Type: marijuana Exam Initial Vital Signs Initial Vital Signs: Vital Signs Temperature 98.6 F 02/17/20 06:41 Pulse Rate 127 H 02/17/20 06:41 Respiratory Rate 18 02/17/20 06:41 Blood Pressure 137/75 02/17/20 06:41 Pulse Oximetry 99 02/17/20 06:41 Const General: cooperative and comfortable Resp Effort & Inspection: normal respiratory effort Cardio Rate: tachycardic Skin Other: 10 cm of irregular redness surrounding a 3 cm area of induration than obvious abscess right anterior thigh. Neuro General: patient alert and patient awake Extrem General: normal to inspection and capillary refill normal Psych Appearance: grossly normal and well kempt Procedures Abscess I/D I&D #1: Site: lower extremity Side (if applicable): right Local Anesthetic: lidocaine 1% and with bicarb Amount of anesthesia used (mL): 5 Technique: incised with #11 blade Irrigation: No Packing used?: none Complications: pain Course Orders Ordered: Hydrocodone Bitart/Acetaminophen ([place] 5/325) 1 tab PO NOW ONE Stop: 02/17/20 06:53 Doxycycline Hyclate (Vibramycin) 100 mg PO NOW ONE Stop: 02/17/20 06:53 Discontinued Medications Lidocaine/Sodium Bicarbonate (Buffered Lidocaine 10 Ml Syr) 10 ml INJ NOW ONE Stop: 02/17/20 06:42 Last Admin: 02/17/20 06:48 Dose: 10 ml Documented by: MALORIE Vital Signs Vital signs: Vital Signs - 8 hr 02/17/20 06:41 Temperature 98.6 F Pulse Rate 127 H Respiratory Rate 18 Blood Pressure 137/75 Pulse Oximetry 99 Medical Decision Making [facility] Narrative Medical decision making narrative: History and physical exam consistent with a abscess. Was drained as described above. No packing placed. Due to the surrounding erythema will place the patient on antibiotics. She is given a 1st dose here. Will send home with a prescription. Is given return precautions and follow-up instructions. She expressed understanding and agreement. Discharge Plan Departure Patient Disposition: Home Clinical Impression: Abscess Instructions: DI for Skin Abscess Activity Restrictions/Additional Instructions: Expect drainage from the area. You can shower like normal. He can use soap and water like normal. Keep it covered with a bandage. Take the antibiotics as directed. They were electronically transmitted to [facility] in [place]. Return to the emergency department for any new or worsening symptoms Prescriptions: New doxycycline hyclate 100 mg capsule 100 mg PO BID 7 Days Qty: 14 RF: 0 No Action albuterol sulfate [ProAir HFA] 90 mcg/actuation HFA aerosol inhaler 1 puff Inhalation PRN PRN (Reason: Shortness Of Breath) RF: 0 Narcan 4 mg/actuation spray,non-aerosol 1 spray Intranasal DIRECTED PRN (Reason: as directed) RF: 0 quetiapine 100 mg tablet 100 mg PO BEDTIME RF: 0 Vivitrol 380 mg Suspension,Extended Rel Recon 380 mg IM QMONTH RF: 0
[2020-02-17] MEDS: LIDO 1%/SOD BICARB 8.4% (10ML) 10 ML SYRINGE INJ (06:48)
--- NOTE | 2020-02-17 06:49 | PC.NURSE ---
Lidocaine admin by Dr Woods
[2020-02-17] MEDS: HYDROCODONE/ACET 5/325 TABLET 1 TAB PO (06:56)
[2020-02-17] MEDS: DOXYCYCLINE HYCLATE 100 MG TABLET PO (06:57)
[2020-02-17 07:20] VITALS: BP 117/64; PULSE 118; RESP 20; O2SAT 98
== END 2020-02-17 07:15 | disposition home or self-care (01) ==
PROVIDERS: Emergency Provider Emergency Medicine; Family Provider Specialist
DX: L02.415 Cutaneous abscess of right lower limb (principal); R00.0 Tachycardia, unspecified
CPT/HCPCS: 10060; 99283

== ENCOUNTER 2020-04-19 21:21 | Emergency (ER) | payer OTHER, MEDICAID, SELFPAY ==
[2020-04-19 21:21] VITALS: BP 133/64; PULSE 104; RESP 18; TEMP 36.6; O2SAT 98; BMI 34.3
--- NOTE | 2020-04-19 21:25 | ED_ITS ---
HPI - General Adult General Chief complaint: Skin/Abscess/Foreign Body Stated complaint: states she has an abcess Time Seen by Provider: 04/19/20 21:22 Source: patient Mode of arrival: Ambulatory Limitations: no limitations History of Present Illness HPI narrative: 24-year-old female who has had multiple abscesses in the past needing incision and drainage here for evaluation of an abscess to her right thigh. She states that she started to develop the redness and pain a couple days ago and has worsened since then. No fevers. She states she tried to pop it this morning but was unable to. Is currently on penicillin for a infection in her gums. Denies any trauma to the right leg Related Data Home Medications Medication Instructions Recorded Confirmed albuterol sulfate [ProAir HFA] 1 puff INHALATION PRN PRN 11/15/18 09/12/19 naloxone [Narcan] 1 spray INTRANASAL DIRECTED PRN 11/15/18 09/12/19 naltrexone microspheres [Vivitrol] 380 mg IM QMONTH 09/12/19 09/12/19 quetiapine 100 mg PO BEDTIME 09/12/19 09/12/19 Previous Rx's Medication Instructions Recorded clindamycin HCl 300 mg PO Q6H 10 Days #40 cap 04/19/20 Allergies Allergy/AdvReac Type Severity Reaction Status Date / Time No Known Drug Allergies Allergy Verified 12/26/18 09:04 Review of Systems Constitutional Constitutional: Denies fever(s) Musculoskeletal Comments: No hip or knee pain Integumentary/Breasts Comments: Redness with abscess right anterior thigh Neurologic Neurologic: Denies behavioral changes Psychiatric Psychiatric: Denies behavioral changes Hematologic/Lymphatic Hematologic/Lymphatic: Denies easy bleeding and Denies easy bruising Patient History Medical History Feared complaint without diagnosis (Inactive) Migraine headache (Inactive) 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) Urinary tract infection (Inactive) Social History Smoking Status: Current every day smoker Smoking Status: Current every day smoker alcohol intake frequency: other Substance Use Type: marijuana Exam Initial Vital Signs Initial Vital Signs: Vital Signs Temperature 97.8 F 04/19/20 21:21 Pulse Rate 104 H 04/19/20 21:21 Respiratory Rate 18 04/19/20 21:21 Blood Pressure 133/64 04/19/20 21:21 Pulse Oximetry 98 04/19/20 21:21 Const General: cooperative and comfortable Skin Other: Patient with a 2 cm x 1 cm area of induration on the right anterior/lateral thigh with a surrounding 2 cm area of erythema. There is no breaks in the skin over the area. No drainage. Neuro General: patient alert and patient awake Cognition: normal cognition Speech: speech normal Extrem Other: Right hip and right knee unremarkable. Psych Appearance: grossly normal and well kempt Procedures Abscess I/D I&D #1: Site: lower extremity Side (if applicable): right Local Anesthetic: lidocaine 1% and with bicarb Amount of anesthesia used (mL): 5 Technique: incised with #11 blade Irrigation: No Packing used?: none Course Orders Ordered: Discontinued Medications Lidocaine/Sodium Bicarbonate (Buffered Lidocaine 10 Ml Syr) 10 ml INJ NOW ONE Stop: 04/19/20 21:25 Last Admin: 04/19/20 21:35 Dose: 10 ml Documented by: EULOGIO Vital Signs Vital signs: Vital Signs - 8 hr 04/19/20 21:21 Temperature 97.8 F Pulse Rate 104 H Respiratory Rate 18 Blood Pressure 133/64 Pulse Oximetry 98 Medical Decision Making MDM Narrative Medical decision making narrative: Incision and drainage performed as described above. Low suspicion for foreign body. Patient has had multiple abscesses in the past. She is currently on penicillin for dental infection which given her history of multiple abscesses this is most likely MRSA and penicillin would not cover this type of abscess/infection. She does have a small amount of erythema however there is a possibility that the incision and drainage will be enough for treatment of her abscess. Plan will be is to have her continue her penicillin. She was given a prescription for clindamycin. Will have her hold on filling this prescription to see whether not over the next couple days the incision and drainage take care of the infection and right leg. If things are worsening she will fill this prescription and start taking as directed. She was also given phone numbers to contact to establish a primary provider in the area. She was given return precautions and follow-up instructions. She expressed under standing and agreement. Discharge Plan Departure Patient Disposition: Home Clinical Impression: Abscess Cellulitis Qualifiers: Site of cellulitis: extremity Site of cellulitis of extremity: lower extremity Laterality: right Qualified Code(s): L03.115 - Cellulitis of right lower limb Discharge Date/Time: 04/19/20 21:48 Instructions: DI for Incision and Drainage of a Skin Abscess Activity Restrictions/Additional Instructions: Recommend that you continue with the penicillin that you were taking for your dental infection as directed. Keep the incision site that we did here in the emergency department covered however you can shower like normal. Keep the prescription that you were given today at home and if the redness around the incision site extends outside of the line that was drawn were you start to have other symptoms. Stop the penicillin that you are taking and start taking this new antibiotic as directed. Recommend that you contact the health resource is coordinator here at the hospital at [phone]. This individual can help you establishing a primary provider. Return to the emergency department for any new or worsening symptoms Prescriptions: New clindamycin HCl 300 mg capsule 300 mg PO Q6H 10 Days Qty: 40 RF: 0 No Action albuterol sulfate [ProAir HFA] 90 mcg/actuation HFA aerosol inhaler 1 puff Inhalation PRN PRN (Reason: Shortness Of Breath) RF: 0 Narcan 4 mg/actuation spray,non-aerosol 1 spray Intranasal DIRECTED PRN (Reason: as directed) RF: 0 quetiapine 100 mg tablet 100 mg PO BEDTIME RF: 0 Vivitrol 380 mg Suspension,Extended Rel Recon 380 mg IM QMONTH RF: 0
[2020-04-19] MEDS: LIDO 1%/SOD BICARB 8.4% (10ML) 10 ML SYRINGE INJ (21:35)
== END 2020-04-19 21:48 | disposition home or self-care (01) ==
PROVIDERS: Emergency Provider Emergency Medicine; Family Provider Specialist
DX: L02.415 Cutaneous abscess of right lower limb (principal); L03.115 Cellulitis of right lower limb
CPT/HCPCS: 10060; 99282; 99283

== ENCOUNTER 2020-06-30 04:18 | Emergency (ER) | payer OTHER, MEDICAID, SELFPAY ==
[2020-06-30 04:20] VITALS: BP 121/77; PULSE 119; RESP 18; TEMP 37.2; O2SAT 99; BMI 34.3
--- NOTE | 2020-06-30 04:21 | ED_ITS ---
HPI - Extremity Problem General Chief complaint: Skin/Abscess/Foreign Body Stated complaint: REDNESS/PAIN/LOWER LEG RIGHT SIDE Time Seen by Provider: 06/30/20 04:20 Source: patient Mode of arrival: Ambulatory Limitations: no limitations History of Present Illness HPI Narrative: 25-year-old female smoker with history of IV drug abuse presents with a few days of gradually worsening redness, pain and warmth of skin on her right lower leg in the location of recent attempts at injection. She states that had started hurting until tonight. She denies systemic findings such as fever, chills nor nausea or vomiting. She has prior visits for incision and drainage of abscesses and denies any allergies to antibiotics. MD Complaint: extremity pain Onset (ago): hour(s) Pain Consistency: constant Location: right Quality: burning, stabbing and aching Radiation: none Relieving factors: nothing Exacerbating factors: weight bearing Associated symptoms: denies other symptoms Related Data Home Medications Medication Instructions Recorded Confirmed albuterol sulfate [ProAir HFA] 1 puff INHALATION PRN PRN 11/15/18 09/12/19 naloxone [Narcan] 1 spray INTRANASAL DIRECTED PRN 11/15/18 09/12/19 naltrexone microspheres [Vivitrol] 380 mg IM QMONTH 09/12/19 09/12/19 quetiapine 100 mg PO BEDTIME 09/12/19 09/12/19 Allergies Allergy/AdvReac Type Severity Reaction Status Date / Time No Known Drug Allergies Allergy Verified 06/30/20 04:32 Review of Systems Constitutional Constitutional: Denies chills, Denies fatigue, Denies fever(s), Denies frequent falls, Denies lethargy and Denies weakness Eyes Eyes: Denies change in vision, Denies eye discharge, Denies irritation and Denies loss of vision ENT Ears, Nose, Mouth, and Throat: Denies change in voice, Denies dizziness, Denies neck pain, Denies sore throat and Denies throat swelling Cardiovascular Cardiovascular: Denies chest pain, Denies irregular heart rhythm, Denies lightheadedness, Denies palpitations, Denies dyspnea, Denies dyspnea on exertion and Denies orthopnea Respiratory Respiratory: Denies cough, Denies dyspnea, Denies dyspnea on exertion and Denies wheezing Gastrointestinal Gastrointestinal: Denies abdominal pain, Denies change in bowel habits, Denies diarrhea, Denies nausea and Denies vomiting Musculoskeletal Musculoskeletal: Denies neck pain and Denies numbness Integumentary/Breasts Skin/Breast: Denies pruritus, Denies erythema, Denies rash and Denies wounds Neurologic Neurologic: Denies behavioral changes, Denies confusion, Denies dizziness, Denies frequent falls, Denies loss of vision, Denies numbness and Denies weakness Psychiatric Psychiatric: Denies anxiety, Denies behavioral changes, Denies confusion, Denies depression, Denies homicidal ideation and Denies suicidal ideation Endocrine Endocrine: Denies fatigue, Denies flushing and Denies palpitations Hematologic/Lymphatic Hematologic/Lymphatic: Denies easy bruising Allergic/Immunologic Allergic/Immunologic: Denies urticaria, Denies throat swelling and Denies wheezing Patient History Medical History (Updated 05/04/20 @ 00:00 by ) Feared complaint without diagnosis Migraine headache 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 Well- nourished, well-developed patient, in mild distress. HEAD: Atraumatic. Normocephalic. EYES: Pupils equal round and reactive. Extraocular motions intact. No scleral icterus. No injection or drainage. ENT: Nose without bleeding, purulent drainage. Throat without erythema, tonsillar hypertrophy or exudate. Airway patent. NECK: Trachea midline. Non tender CARDIOVASCULAR: Regular rate and rhythm without murmurs, gallops, or rubs. RESPIRATORY: Clear to auscultation. Breath sounds equal bilaterally. No wheezes, rales, or rhonchi. GASTROINTESTINAL: Abdomen soft, non-tender, nondistended. EXTREMITIES: Skin of anterior RLE red with warm and some tenderness to palp, mild streaking proximally to below knee. Not circumferential. No induration or fluctuance. No edema or joint tenderness. BACK: Nontender without deformity or crepitance. No flank tenderness. NEURO: AOx3. SKIN: No rash or erythema of visible areas Initial Vital Signs Initial Vital Signs: Vital Signs Temperature 99 F 06/30/20 04:20 Pulse Rate 119 H 11/24/20 04:20 Respiratory Rate 18 06/30/20 04:20 Blood Pressure 121/77 06/30/20 04:20 Pulse Oximetry 99 06/30/20 04:20 Course Orders Ordered: ED Orders 06/30/20 05:28 Complete Blood Count AUTO DIFF Stat Discontinued Medications Doxycycline Hyclate (Doxycycline Hyclate 100 Mg Tablet) 100 mg PO NOW ONE Stop: 06/30/20 05:46 Ketorolac Tromethamine (Ketorolac 60 Mg/2 Ml Vial) 60 mg IM NOW ONE Stop: 06/30/20 05:46 Vital Signs Vital signs: Vital Signs - 8 hr 06/30/20 04:20 Temperature 99 F Pulse Rate 119 H Respiratory Rate 18 Blood Pressure 121/77 Pulse Oximetry 99 MDM - Extremity (Nontraumatic) Imaging Data US - abdomen: Radiologist's Impression: Unremarkable RUQ US. GB unremarkable. No stone formation, wall thickening or pericholecystic fluid noted. Common bile duct within normal limits. No intrahepatic duct dilatation appreciated. Liver is and a remarkable. Discharge Plan Departure Prescriptions: No Action albuterol sulfate [ProAir HFA] 90 mcg/actuation HFA aerosol inhaler 1 puff Inhalation PRN PRN (Reason: Shortness Of Breath) RF: 0 Narcan 4 mg/actuation spray,non-aerosol 1 spray Intranasal DIRECTED PRN (Reason: as directed) RF: 0 quetiapine 100 mg tablet 100 mg PO BEDTIME RF: 0 Vivitrol 380 mg Suspension,Extended Rel Recon 380 mg IM QMONTH RF: 0
[2020-06-30] MEDS: DOXYCYCLINE HYCLATE 100 MG TABLET PO (05:51)
[2020-06-30] MEDS: KETOROLAC 60 MG/2 ML VIAL IM (05:52)
--- NOTE | 2020-06-30 05:56 | ED_ITS ---
HPI - Skin/Abscess/Foreign Bdy General Chief complaint: Skin/Abscess/Foreign Body Stated complaint: REDNESS/PAIN/LOWER LEG RIGHT SIDE Time Seen by Provider: 06/30/20 04:20 Source: patient Mode of arrival: Ambulatory Limitations: no limitations History of Present Illness HPI narrative: 25-year-old female smoker with history of IV drug abuse presents with the chief complaint of some redness, pain and swelling to her anterior right pineda over the past few days. She states that she attempted to inject illicit drugs few days ago. Her pain did not start until tonight. She denies any drainage or systemic findings such as fever, chills nor nausea or vomiting. She has been seen and evaluated on multiple occasions and has required incision and drainage of abscess. MD complaint: discoloration Onset (ago): day(s) Tetanus up to date: yes Location: RLE Severity: mild Quality: aching Pain Consistency: constant Relieving factors: rest Exacerbating factors: movement Context: none Associated symptoms: denies other symptoms Treatments prior to arrival: none Related Data Home Medications Medication Instructions Recorded Confirmed albuterol sulfate [ProAir HFA] 1 puff INHALATION PRN PRN 11/15/18 09/12/19 naloxone [Narcan] 1 spray INTRANASAL DIRECTED PRN 11/15/18 09/12/19 naltrexone microspheres [Vivitrol] 380 mg IM QMONTH 09/12/19 09/12/19 quetiapine 100 mg PO BEDTIME 09/12/19 09/12/19 Previous Rx's Medication Instructions Recorded doxycycline hyclate 100 mg PO BID #20 tab 06/30/20 ketorolac 10 mg PO Q6H PRN #14 tab 06/30/20 Allergies Allergy/AdvReac Type Severity Reaction Status Date / Time No Known Drug Allergies Allergy Verified 06/30/20 04:32 Review of Systems Constitutional Constitutional: Denies fatigue, Denies frequent falls and Denies weakness Eyes Eyes: Denies loss of vision ENT Ears, Nose, Mouth, and Throat: Denies dizziness and Denies throat swelling Cardiovascular Cardiovascular: Denies chest pain, Denies irregular heart rhythm, Denies lightheadedness, Denies palpitations, Denies dyspnea, Denies dyspnea on exertion and Denies orthopnea Respiratory Respiratory: Denies cough, Denies dyspnea, Denies dyspnea on exertion and Denies wheezing Gastrointestinal Gastrointestinal: Denies abdominal pain, Denies change in bowel habits, Denies diarrhea, Denies nausea and Denies vomiting Musculoskeletal Musculoskeletal: Denies numbness Integumentary/Breasts Skin/Breast: Denies pruritus, Reports erythema, Denies rash, Reports skin pain, Reports skin swelling and Denies wounds Neurologic Neurologic: Denies behavioral changes, Denies confusion, Denies dizziness, Denies frequent falls, Denies loss of vision, Denies numbness and Denies weakness Psychiatric Psychiatric: Denies behavioral changes and Denies confusion Endocrine Endocrine: Denies fatigue, Denies flushing and Denies palpitations Hematologic/Lymphatic Hematologic/Lymphatic: Denies easy bruising Allergic/Immunologic Allergic/Immunologic: Denies urticaria, Denies throat swelling and Denies wheezing Patient History Medical History Feared complaint without diagnosis Migraine headache 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 Extraoccular muscles are intact bilaterally. There is no subconjunctival hemorrhage or exudate. CHEST: Lungs are clear to auscultation bilaterally and free of wheezes, rales, or rhonchi. Heart rate is regular rhythm with mild tachycardia, there are no murmurs, clicks, rubs, or gallops. There is no chest wall tenderness. ABD: Abdomen is soft and nontender. There is no guarding or rebound. Bowel sounds are normal in all 4 quadrants. There is no mass or organomegaly. EXT: Erythema on right anterior pineda without fluctuance or induration. There is some red streaking proximal but extends only to a few cm below the knee. No obvious break in the skin or drainage. Otherwise, Full painless ROM of all extremities with no loss of sensation or strength. SKIN: OTherwise Warm, pink, and dry. No erythema or rash Initial Vital Signs Initial Vital Signs: Vital Signs Temperature 99 F 06/30/20 04:20 Pulse Rate 119 H 06/30/20 04:20 Respiratory Rate 18 11/24/20 04:20 Blood Pressure 121/77 11/24/20 04:20 Pulse Oximetry 99 06/30/20 04:20 Course Course Course Narrative: Patient is a very hard IV stick and eventually request that we stop. We had extensive discussion and there is very little other than a slight elevation in her heart rate to suggest any underlying systemic findings. She shows no sign of sepsis, initial heart rate drops to the 90s by time of discha rge. She has been given extensive return precautions and had questions answered to her apparent satisfaction. Orders Ordered: ED Orders 06/30/20 05:28 Complete Blood Count AUTO DIFF Stat Discontinued Medications Doxycycline Hyclate (Doxycycline Hyclate 100 Mg Tablet) 100 mg PO NOW ONE Stop: 06/30/20 05:46 Last Admin: 06/30/20 05:51 Dose: 100 mg Documented by: Ketorolac Tromethamine (Ketorolac 60 Mg/2 Ml Vial) 60 mg IM NOW ONE Stop: 06/30/20 05:46 Last Admin: 06/30/20 05:52 Dose: 60 mg Documented by: Vital Signs Vital signs: Vital Signs - 8 hr 06/30/20 04:20 06/30/20 06:24 Temperature 99 F Pulse Rate 119 H 99 H Respiratory Rate 18 18 Blood Pressure 121/77 123/62 Pulse Oximetry 99 97 Discharge Plan Departure Patient Disposition: Home Clinical Impression: Cellulitis Qualifiers: Site of cellulitis: extremity Site of cellulitis of extremity: lower extremity Laterality: right Qualified Code(s): L03.115 - Cellulitis of right lower limb Instructions: DI for Cellulitis -- Adult Activity Restrictions/Additional Instructions: *You have been diagnosed with [cellulitis of right anterior lower extremity without sign of abscess] *What to do: *Take medications as directed *Follow up with your primary care provider in 2-3 days, call for an appointment. Let them know you were seen in the Emergency Department and that we ask that you be seen in follow up *Return to ER if you should have any new, worsening or concerning symptoms, such as [increasing pain, swelling, fever greater than 101 F, persistent vomiting or other bothersome symptoms] Prescriptions: New doxycycline hyclate 100 mg tablet 100 mg PO BID Qty: 20 RF: 0 ketorolac 10 mg tablet 10 mg PO Q6H PRN (Reason: pain) Qty: 14 RF: 0 No Action albuterol sulfate [ProAir HFA] 90 mcg/actuation HFA aerosol inhaler 1 puff Inhalation PRN PRN (Reason: Shortness Of Breath) RF: 0 Narcan 4 mg/actuation spray,non-aerosol 1 spray Intranasal DIRECTED PRN (Reason: as directed) RF: 0 quetiapine 100 mg tablet 100 mg PO BEDTIME RF: 0 Vivitrol 380 mg Suspension,Extended Rel Recon 380 mg IM QMONTH RF: 0
[2020-06-30 06:24] VITALS: BP 123/62; PULSE 99; RESP 18; O2SAT 97
== END 2020-06-30 06:34 | disposition home or self-care (01) ==
PROVIDERS: Emergency Provider Emergency Medicine; Family Provider Specialist
DX: L03.115 Cellulitis of right lower limb (principal)
CPT/HCPCS: 96372; 99281; 99283; STOP; J1885

== ENCOUNTER 2020-07-29 15:59 | Emergency (ER) | payer OTHER, MEDICAID, SELFPAY ==
[2020-07-29 16:03] VITALS: BP 149/89; PULSE 112; RESP 24; TEMP 36; O2SAT 99
--- NOTE | 2020-07-29 17:21 | ED_ITS ---
HPI - Skin/Abscess/Foreign Bdy General Chief complaint: Skin/Abscess/Foreign Body Stated complaint: left lower leg pain Time Seen by Provider: 07/29/20 17:10 Source: patient Mode of arrival: Ambulatory Limitations: no limitations History of Present Illness HPI narrative: This is a 25-year-old female comes emergency department with complaint of redness, swelling and pain on her low left lower calf. Patient states that she has injected her the drugs into that location. She states that she came in early because she has developed abscesses in the past and wants to avoid that. She denies fevers, no chills. No chest pain or shortness of breath. No nausea vomiting. No other GI or urinary symptoms. She has pain particularly in that area, she has developed some swelling this radiated towards the foot it is not generalized swelling of the entire but more localized. Patient states warm and red. She denies any other medical issues. Denies any allergies to medications. Related Data Home Medications Medication Instructions Recorded Confirmed albuterol sulfate [ProAir HFA] 1 puff INHALATION PRN PRN 11/15/18 09/12/19 naloxone [Narcan] 1 spray INTRANASAL DIRECTED PRN 11/15/18 09/12/19 naltrexone microspheres [Vivitrol] 380 mg IM QMONTH 09/12/19 09/12/19 quetiapine 100 mg PO BEDTIME 09/12/19 09/12/19 Previous Rx's Medication Instructions Recorded doxycycline hyclate 100 mg PO BID #20 tab 06/30/20 ketorolac 10 mg PO Q6H PRN #14 tab 06/30/20 doxycycline hyclate 100 mg PO BID #20 tab 07/29/20 Allergies Allergy/AdvReac Type Severity Reaction Status Date / Time No Known Drug Allergies Allergy Verified 06/30/20 04:32 Review of Systems Review of Systems ROS Unobtainable: All systems reviewed & are unremarkable except as noted in HPI and below Patient History Medical History (Updated 07/29/20 @ 17:27 by Sruthi Javier DO) Feared complaint without diagnosis Migraine headache 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 HEENT: Head normocephalic, atraumatic, EOMI, pupils reactive, face symmetric, moist mucous membranes NECK: Supple, full range of motion CARDIOVASCULAR: Regular rate and rhythm without murmurs, rubs or gallops. RESPIRATORY: Breath sounds equal bilaterally, no wheezes rales or rhonchi. ABDOMEN: Soft, nontender. Normoactive bowel sounds all 4 quadrants. No guarding or rebound, rigidity, no mass EXTREMITIES: Normal range of motion, no clubbing. Patient has patchy erythema was advised medial side of her left lower extremity, the area is tender with warmth and erythema with localized edema radiating towards her foot. There is no discrete fluctuant fluid collection. Neurovascularly intact, patient has normal sensation. NEUROLOGICAL: Cranial nerves II through XII grossly intact. Moving all extremities SKIN: Warm, dry, no petechiae, no rashes or lesions. Initial Vital Signs Initial Vital Signs: Vital Signs Temperature 96.8 F L 07/29/20 16:03 Pulse Rate 112 H 07/29/20 16:03 Respiratory Rate 24 07/29/20 16:03 Blood Pressure 149/89 H 07/29/20 16:03 Pulse Oximetry 99 07/29/20 16:03 Course Reevaluation(s) Reevaluation #1: patient went to bathroom and started to leave department without telling anyone. States she needs to go to give her his phone. Patient did/did not return. Patient left prior to US. Time: 17:27 Vital Signs Vital signs: Vital Signs - 8 hr 07/29/20 16:03 Temperature 96.8 F L Pulse Rate 112 H Respiratory Rate 24 Blood Pressure 149/89 H Pulse Oximetry 99 Discharge Plan Departure Patient Disposition: Left Against Medical Advice Clinical Impression: Cellulitis Instructions: DI for Cellulitis -- Adult Activity Restrictions/Additional Instructions: Follow-up in the next several days if your symptoms are not improving. You may take Tylenol up to a 1000 mg every 8 hours as needed for pain. Prescription to [facility] in [place]. Return to the ER for fevers, increasing swelling, increasing pain, purulent drainage, new numbness tingling weakness, new chest pain shortness of breath, persistent vomiting, lightheadedness or passing out or other new or concerning symptoms. Prescriptions: New doxycycline hyclate 100 mg tablet 100 mg PO BID Qty: 20 RF: 0 No Action albuterol sulfate [ProAir HFA] 90 mcg/actuation HFA aerosol inhaler 1 puff Inhalation PRN PRN (Reason: Shortness Of Breath) RF: 0 Narcan 4 mg/actuation spray,non-aerosol 1 spray Intranasal DIRECTED PRN (Reason: as directed) RF: 0 quetiapine 100 mg tablet 100 mg PO BEDTIME RF: 0 Vivitrol 380 mg Suspension,Extended Rel Recon 380 mg IM QMONTH RF: 0 doxycycline hyclate 100 mg tablet 100 mg PO BID Qty: 20 RF: 0 ketorolac 10 mg tablet 10 mg PO Q6H PRN (Reason: pain) Qty: 14 RF: 0 Stand Alone Forms: Against Medical Advice
--- NOTE | 2020-07-29 17:31 | PC.NURSE ---
1728 pt went to use restroom and wanted to leave. when approached by staff, pt reported she needed to give her his phone since he had to leave. states she was going to leave but will be back in a few minutes. pt has not returned yet. aware.
--- NOTE | 2020-07-29 18:48 | PC.NURSE ---
left message on pt's phone that Dr. 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
== END 2020-07-29 17:41 | disposition left against medical advice (07) ==
PROVIDERS: Emergency Provider Emergency Medicine; Family Provider Specialist
DX: L03.116 Cellulitis of left lower limb (principal); E66.9 Obesity, unspecified
CPT/HCPCS: 99281

== ENCOUNTER 2020-12-24 03:37 | Emergency (ER) | payer OTHER, MEDICAID, SELFPAY ==
[2020-12-24 03:48] VITALS: BP 138/84; PULSE 122; RESP 18; TEMP 37.5; O2SAT 99; BMI 39.4
[2020-12-24] MEDS: TRIMETH/SULFA 160/800 (DS) TABLET 1 TAB PO (04:02)
[2020-12-24] MEDS: FUROSEMIDE 20 MG TABLET PO (04:02)
--- NOTE | 2020-12-24 04:03 | ED.EXTPRO ---
HPI - Extremity Problem General Chief complaint: Extremity Problem,Nontraumatic Stated complaint: left lower leg seems infected Time Seen by Provider: 12/24/20 03:40 Source: patient Mode of arrival: Ambulatory Limitations: no limitations History of Present Illness HPI Narrative: 25-year-old woman with a history of IV drug use including heroin and methamphetamine presents with increasing pain in the left lower leg after she injected in a vein a couple of days ago. She also complains of peripheral edema and is wondering what options there might be. She notes that in the past she has been through treatment, she has used methadone, Suboxone and Subutex and has been to [facility] in [place] most recently. She recognizes that her ?poor choices in poor life decisions ?are adversely affecting her health. At this point she does not complain of any chest pain, palpitations, orthopnea, dyspnea, abdominal pain, dysuria, headaches. Related Data Home Medications Medication Instructions Recorded Confirmed albuterol sulfate [ProAir HFA] 1 puff INHALATION PRN PRN 11/15/18 09/12/19 naloxone [Narcan] 1 spray INTRANASAL DIRECTED PRN 11/15/18 09/12/19 naltrexone microspheres [Vivitrol] 380 mg IM QMONTH 09/12/19 09/12/19 quetiapine 100 mg PO BEDTIME 09/12/19 09/12/19 Previous Rx's Medication Instructions Recorded doxycycline hyclate 100 mg PO BID #20 tab 06/30/20 ketorolac 10 mg PO Q6H PRN #14 tab 06/30/20 doxycycline hyclate 100 mg PO BID #20 tab 07/29/20 furosemide [Lasix] 20 mg PO DAILY #7 tab 12/24/20 sulfamethoxazole-trimethoprim 1 tab PO BID #14 tab 12/24/20 [Bactrim DS] Allergies Allergy/AdvReac Type Severity Reaction Status Date / Time No Known Drug Allergies Allergy Verified 12/24/20 03:48 Review of Systems Review of Systems Narrative: Remainder of complete review of systems is otherwise unremarkable except for that included in the HPI. 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 Able to give a complete and coherent history. Well-nourished well-developed HEENT: Moist mucous membranes, pinpoint pupils with injected sclera bilaterally Neck: No JVD, supple Respiratory: Lungs are clear to auscultation, no wheezing no rales no rhonchi. Full and symmetrical air movement Cardiac: Regular rate and rhythm, no murmurs with careful auscultation, no bruits Abdomen: Soft, nontender, good bowel tones, no flank pain Skin: Track hare, multiple scars, hyperemic hands Neurologic: Grossly neurologically intact with no obvious asymmetries or abnormalities Extremities: No trauma, 3+ lower extremity edema. Left anterior pineda with developing erythema without abscess around prior injection site. Psych: Cooperative, appropriate insight and affect Initial Vital Signs Initial Vital Signs: Vital Signs Temperature 99.5 F 12/24/20 03:48 Pulse Rate 122 H 12/24/20 03:48 Respiratory Rate 18 12/24/20 03:48 Blood Pressure 138/84 12/24/20 03:48 Pulse Oximetry 99 12/24/20 03:48 Course Orders Ordered: Discontinued Medications Furosemide (Furosemide 20 Mg Tablet) 20 mg PO NOW ONE Stop: 12/24/20 03:55 Last Admin: 12/24/20 04:02 Dose: 20 mg Documented by: [email or web address] Trimethoprim/Sulfamethoxazole (Trimeth/Sulfa 160/800 (Ds) Tablet) 1 tab PO NOW ONE Stop: 12/24/20 03:55 Last Admin: 12/24/20 04:02 Dose: 1 tab Documented by: [email or web address] Vital Signs Vital signs: Vital Signs - 8 hr 12/24/20 03:48 Temperature 99.5 F Pulse Rate 122 H Respiratory Rate 18 Blood Pressure 138/84 Pulse Oximetry 99 [facility] - Extremity (Nontraumatic) Medical Records Attestation: I reviewed the patient's medical records. [facility] Narrative Medical decision making narrative: 25-year-old woman presents with developing cellulitis on the left lower extremity requesting help in preventing it from developing into an abscess. She also has questions about her hyperemic hands and chronically swollen lower extremities. At this point she does not have any signs or symptoms of congestive heart failure or endocarditis. 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 Shared these findings with her and encouraged her to consider getting back to [facility] to help deal with her opiate and methamphetamine use disorders. She is safe for home discharge Discharge Plan Departure Patient Disposition: Home Clinical Impression: Lower extremity edema Cellulitis Qualifiers: Site of cellulitis: extremity Site of cellulitis of extremity: lower extremity Laterality: left Qualified Code(s): L03.116 - Cellulitis of left lower limb Instructions: DI for Cellulitis -- Adult Activity Restrictions/Additional Instructions: Thank you for coming in today I think that you are right and you are beginning to develop a cellulitis around that injection site in your lower leg. I am going to give you a prescription for Bactrim to take twice a day, please complete the entire week. Regarding your lower extremity edema I suspect that part of it is from the blood vessel damage that you done with your heroin injection. Also lower extremity edema something that we commonly see with recurrent methamphetamine use. On your exam today I am not seeing any evidence of congestive heart failure or endocarditis. To help with the lower extremity edema I am going to give you 7 days of Lasix. This is a powerful diuretic and I expect that you will pee quite a bit. 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 You can call them at [phone] to schedule your 1st return appointment. I wish you the best Prescriptions: New sulfamethoxazole-trimethoprim [Bactrim DS] 800-160 mg tablet 1 tab PO BID Qty: 14 RF: 0 furosemide [Lasix] 20 mg tablet 20 mg PO DAILY Qty: 7 RF: 0 No Action doxycycline hyclate 100 mg tablet 100 mg PO BID Qty: 20 RF: 0 albuterol sulfate [ProAir HFA] 90 mcg/actuation HFA aerosol inhaler 1 puff Inhalation PRN PRN (Reason: Shortness Of Breath) RF: 0 Narcan 4 mg/actuation spray,non-aerosol 1 spray Intranasal DIRECTED PRN (Reason: as directed) RF: 0 quetiapine 100 mg tablet 100 mg PO BEDTIME RF: 0 Vivitrol 380 mg Suspension,Extended Rel Recon 380 mg IM QMONTH RF: 0 doxycycline hyclate 100 mg tablet 100 mg PO BID Qty: 20 RF: 0 ketorolac 10 mg tablet 10 mg PO Q6H PRN (Reason: pain) Qty: 14 RF: 0
[2020-12-24 04:24] LABS: WBC Urine None Seen (0-5/HPF)
[2020-12-24 04:25] LABS: Bacteria Urine Occasional (0-1); Culture Indicated Urine Cult Not Indicated; RBC Urine 5-10/HPF (0-5/HPF); Squamous Epithelial Cell Urine 5-10 /HPF (0-5/HPF)
== END 2020-12-24 04:10 | disposition home or self-care (01) ==
PROVIDERS: Emergency Provider Emergency Medicine; Family Provider Specialist
DX: L03.116 Cellulitis of left lower limb (principal); R60.0 Localized edema
CPT/HCPCS: 81003; 81015; 99283

== ENCOUNTER 2021-09-10 21:57 | Emergency (ER) | payer OTHER, MEDICAID, SELFPAY ==
[2021-09-10 22:00] VITALS: BP 163/80; PULSE 90; RESP 18; TEMP 36.6; O2SAT 98; BMI 32.5
--- NOTE | 2021-09-10 23:04 | ED.EAR ---
HPI - Ear Problem General Chief complaint: Ear Stated complaint: CLUGGED RIGHT EAR Time Seen by Provider: 09/10/21 22:58 Source: patient Mode of arrival: Ambulatory History of Present Illness HPI Narrative: Patient is a 26-year-old female who admits to using meth and heroin presenting with sudden onset of right ear pain. She says she took out of bluetooth head phone yesterday and had pain and decreased hearing afterwards. She also says that she is coughing a lot and feels sometimes short of breath. Denies fever or chills. She states she is not vaccinated for COVID. Related Data Home Medications Medication Instructions Recorded Confirmed albuterol sulfate 90 mcg/actuation 1 puff INHALATION PRN PRN 11/15/18 09/12/19 aerosol inhaler naloxone 4 mg/actuation nasal spray 1 spray INTRANASAL DIRECTED PRN 11/15/18 09/12/19 naltrexone microspheres 380 mg 380 mg IM QMONTH 09/12/19 09/12/19 intramuscular suspension,extended release (Vivitrol) quetiapine 100 mg tablet 100 mg PO BEDTIME 09/12/19 09/12/19 Previous Rx's Medication Instructions Recorded doxycycline hyclate 100 mg tablet 100 mg PO BID #20 tab 06/30/20 ketorolac 10 mg tablet 10 mg PO Q6H PRN #14 tab 06/30/20 doxycycline hyclate 100 mg tablet 100 mg PO BID #20 tab 07/29/20 furosemide 20 mg tablet (Lasix) 20 mg PO DAILY #7 tab 12/24/20 sulfamethoxazole 800 1 tab PO BID #14 tab 12/24/20 mg-trimethoprim 160 mg tablet (Bactrim DS) Allergies Allergy/AdvReac Type Severity Reaction Status Date / Time No Known Drug Allergies Allergy Verified 12/24/20 03:48 Review of Systems Review of Systems Narrative: GENERAL: Denies chills,fever HEENT: See HPI RESPIRATORY: See HPI CARDIOVASCULAR: Denies chest pain, palpitations GASTROINTESTINAL: Denies nausea, vomiting MUSCULOSKELETAL: Denies extremity pain, injury SKIN: No rash, no laceration, no pruritus NEUROLOGIC: Denies weakness, dizziness, headache, numbness 8 point review of systems is negative except for those stated above and HPI Patient History Medical History Migraine headache Opioid use disorder Seropositive for herpes simplex 2 infection (12/01/16) Social History Smoking Status: Current every day smoker Smoking Status: Current every day smoker tobacco type: cigarettes alcohol intake frequency: holidays/special occasions only Substance Use Type: marijuana, heroin and methamphetamine Exam Initial Vital Signs Initial Vital Signs: Vital Signs Temperature 98 F 09/10/21 22:00 Pulse Rate 90 09/10/21 22:00 Respiratory Rate 18 09/10/21 22:00 Blood Pressure 163/80 H 09/10/21 22:00 Pulse Oximetry 98 09/10/21 22:00 GENERAL: Well-appearing, well-nourished and in no acute distress. HEENT: Head atraumatic,EOMI, pupils reactive, face symmetric, moist mucous membranes EARS: Tympanic membranes visualized, no erythema or bulging, no hemotympanum no foreign bodies identified no significant swelling CARDIOVASCULAR: Regular rate and rhythm without murmurs, rubs or gallops. RESPIRATORY: Breath sounds equal bilaterally, no wheezes rales or rhonchi. EXTREMITIES: Normal range of motion, no clubbing or edema. Neurovascularly intact NEUROLOGICAL: Alert and oriented x4. SKIN: Warm, dry, no laceration, no petechiae, no rashes or lesions. Course Orders Ordered: ED Orders 09/10/21 23:03 COVID19 -Nasal swab/Pre-Proc Stat Vital Signs Vital signs: Vital Signs - 8 hr 09/10/21 22:00 09/10/21 23:32 Temperature 98 F Pulse Rate 90 86 Respiratory Rate 18 Blood Pressure 163/80 H 138/85 Pulse Oximetry 98 99 Medical Decision Making Lab Data Labs: Lab Results 09/10/21 Range/Units 23:03 SARS-CoV-2 (PCR) Negative (Negative) MDM Narrative Medical decision making narrative: At this time no antibiotics are indicated for an otitis media she has no foreign body. COVID test is negative. Recommend supportive care only. Discharge Plan Departure Patient Disposition: Home Clinical Impression: Acute ear pain Instructions: DI for Ear Pain-Adult Activity Restrictions/Additional Instructions: *You have been diagnosed with right ear pain *What to do: At this time her COVID test is negative. No sign of infection. Please continue to monitor. *Continue to take medications as directed Ibuprofen 100 mg every 8 hours as needed for [id number] pain *Follow up with your primary care provider in 2-3 days or call [phone] *Return to ER if you should have increasing pain, fever, shortness of breath, cough or any new, worsening or concerning symptoms Prescriptions: No Action doxycycline hyclate 100 mg tablet 100 mg PO BID Qty: 20 0RF sulfamethoxazole-trimethoprim [Bactrim DS] 800-160 mg tablet 1 tab PO BID Qty: 14 0RF furosemide [Lasix] 20 mg tablet 20 mg PO DAILY Qty: 7 0RF albuterol sulfate [ProAir HFA] 90 mcg/actuation HFA aerosol inhaler 1 puff Inhalation PRN PRN (Reason: Shortness Of Breath) 0RF Narcan 4 mg/actuation spray,non-aerosol 1 spray Intranasal DIRECTED PRN (Reason: as directed) 0RF quetiapine 100 mg tablet 100 mg PO BEDTIME 0RF Vivitrol 380 mg Suspension,Extended Rel Recon 380 mg IM QMONTH 0RF Label Comments: patient states due soon. 09/15/2019 doxycycline hyclate 100 mg tablet 100 mg PO BID Qty: 20 0RF ketorolac 10 mg tablet 10 mg PO Q6H PRN (Reason: pain) Qty: 14 0RF
[2021-09-10 23:25] LABS: COVID19 -Nasal RAPID Negative (Negative)
[2021-09-10 23:32] VITALS: BP 138/85; PULSE 86; O2SAT 99
== END 2021-09-10 23:33 | disposition home or self-care (01) ==
PROVIDERS: Emergency Provider Emergency Medicine; Family Provider Specialist
DX: H92.01 Otalgia, right ear (principal); Z20.822 Contact with and (suspected) exposure to COVID-19
CPT/HCPCS: 87635; 99282; C9803

== ENCOUNTER 2022-03-14 23:49 | Emergency (ER) | payer OTHER, MEDICAID, SELFPAY ==
[2022-03-14 23:52] VITALS: BP 142/87; PULSE 116; RESP 20; TEMP 36.6; O2SAT 100
== END 2022-03-15 01:00 | disposition left against medical advice (07) ==
PROVIDERS: Emergency Provider Emergency Medicine; Family Provider Specialist
CPT/HCPCS: 99281